=== PATIENT | female | born 1935 | race Two or more races ===

== ENCOUNTER 2018-12-21 01:41 | Inpatient (IN) | payer MEDICARE, OTHER ==
[~2018-12-21] VITALS: Ht 160 cm; Wt 53.3 kg
[~2018-12-21 01:41] MED LIST: ACET325T53 PO; AMLO10TA7 PO; ENOX40DI SQ; HYDR-4354 PO; LEVO250T2 PO
--- NOTE | 2018-12-21 01:58 | NUR ---
PT BIBDAUGHTER FROM HOME C/O ABD PAIN X 2 HOURS, DENIES N/V/D. PT HAS HX OF DEMENTIA. URUGUAYAN SPEAKING. NAD NOTED. RESP EVEN AND UNLABORED. PT ON MONITOR IN BED 11 WITH DAUGHTER AT BEDSIDE. WILL CONTINUE TO MONITOR.
--- NOTE | 2018-12-21 02:18 | NUR ---
BLOOD DRAWN AND GIVEN TO LAB
[2018-12-21] MEDS ORDERED: IV NS 0.9% 1,000 ML BAG IV ONE (02:30)
[2018-12-21] MEDS ORDERED: ONDANSETRON HCL/PF 4 MG/2 ML VIAL IVP ONE (02:30)
[2018-12-21] MEDS ORDERED: MORPHINE SULFATE INJ 2 MG/ML DISP.SYRIN IV ONE (02:30)
[2018-12-21 02:33] LABS: BASOPHILS # (AUTO) 0.1 /CMM (0.0-0.2); BASOPHILS % (AUTO) 0.8 % (0.0-2.0); EOSINOPHILS % (AUTO) 4.1 % (0.0-6.0); HEMATOCRIT 34 % (33-45); HEMOGLOBIN 11.4 g/dL (11.5-14.8); LYMPHOCYTES % (AUTO) 27.7 % (20.0-44.0); MEAN CORPUSCULAR HGB CONC 34 g/dl (31.0-36.0); MEAN CORPUSCULAR VOLUME 96 fL (82-100); MONOCYTES # (AUTO) 0.6 /CMM (0.1-1.30); MONOCYTES % (AUTO) 7.7 % (2.0-12.0); NEUTROPHILS # (AUTO) 4.4 /CMM (1.8-8.9); NEUTROPHILS % (AUTO) 59.7 % (43.0-81.0); PLATELET COUNT (AUTO) 210 /CMM (150-450); RED BLOOD CELL COUNT(AUTO) 3.53 MIL/uL (4.0-5.2); WHITE BLOOD COUNT (AUTO) 7.4 K/uL (4.3-11.0)
--- NOTE | 2018-12-21 02:34 | NUR ---
URINE COLLECTED AND SENT TO LAB
[2018-12-21 02:36] LABS: CALCIUM, SERUM 9.2 mg/dL (8.5-10.1); CARBON DIOXIDE 26 mmol/L (21-32); CHLORIDE 107 mmol/L (98-107); CREATININE 1.4 mg/dL (0.6-1.3); GLUCOSE 92 mg/dL (74-106); POTASSIUM 4.1 mmol/L (3.5-5.1); SODIUM SERUM 142 mmol/L (136-145); UREA NITROGEN, BLOOD 29 mg/dL (7-18)
--- NOTE | 2018-12-21 02:38 | NUR ---
PT TAKEN TO RADIOLOGY VIA JU
[2018-12-21 02:42] LABS: ALANINE AMINOTRANSFERASE 17 U/L (12-78); ALKALINE PHOSPHATASE 57 U/L (46-116); ASPARTATE AMINOTRANSFERASE 21 U/L (15-37); BILIRUBIN,DIRECT 0.1 mg/dL (0.0-0.2); BILIRUBIN,TOTAL 0.4 mg/dL (0.2-1.0); LIPASE 233 U/L (73-393); TOTAL PROTEIN, SERUM 8.1 g/dL (6.4-8.2)
--- NOTE | 2018-12-21 02:49 | NUR ---
PT RETURNED FROM CT. TOLERATED WELL.
[2018-12-21 03:11] LABS: APPEARANCE,URINE CLOUDY (CLEAR); COLOR,URINE YELLOW (YELLOW)
[2018-12-21 03:12] LABS: BILIRUBIN,URINE NEGATIVE (NEGATIVE); BLOOD, URINE 3+ Ery/uL (NEGATIVE); KETONES,URINE NEGATIVE (NEGATIVE); PH,URINE 7.5 (5.0-8.0); PROTEIN,URINE 2+ mg/dl (NEGATIVE); UGLUCOSE NEGATIVE (NEGATIVE)
[2018-12-21 03:13] LABS: LEUKOCYTE ESTERASE ,URINE 3+ (NEGATIVE); NITRITE, URINE NEGATIVE (NEGATIVE); UROBILINOGEN,URINE 0.2 EU/dL (0.2)
[2018-12-21 03:14] LABS: BACTERIA,URINE Few /HPF (None Seen); SQUAMOUS EPITHELIAL CELL,UR Few /HPF (None Seen); WBC,URINE TOO NUMEROUS TO COUN /HPF (0-3)
[2018-12-21] MEDS ORDERED: CEFTRIAXONE 1GM BAG (ER ONLY) 50 ML IV ONE (03:28)
[2018-12-21] MEDS ORDERED: CEFTRIAXONE 1 G in IV D5W 50 ML IV ONE (03:30)
[2018-12-21 04:10] VITALS: BP 166/73
--- NOTE | 2018-12-21 04:18 | NUR ---
MS/RN NOTES RECEIVED PT. FROM ER VIA JU. PT. IS AWAKE, ALERT AND ORIENTED X2. BREATHING EVEN AND UNLABORED ON ROOM AIR. NO SOB, RESPIRATORY DISTRESS OR COMPLAINTS OF PAIN NOTED AT THIS TIME. PT. WITH LEFT FOREARM 20 GAUGE IV SALINE LOCK PRESENT, PATENT AND INTACT. ORIENTED PT. TO ROOM. PT. IS AMBULATORY WITH WALKER AND STANDBY ASSIST. PER ER NURSE DAVID GERMAN IS AWARE OF PATIENT ADMISSION AND WILL BE PUTTING IN ORDERS. BED LOCKED AND IN LOWEST POSITION, SIDE RAILS UP X3, BED ALARM ON, CALL LIGHT WITHIN REACH, AWAITING ADMITTING ORDERS. WILL CONTINUE TO MONITOR.
--- NOTE | 2018-12-21 06:18 | NUR ---
MS/RN NOTES CALLED AND SPOKE WITH PT. DAUGHTER HORTENSIA GARZA TO CLARIFY IF PATIENT CURRENTLY TAKES ANY HOME MEDICATIONS. PER DAUGHTER PT. DOES NOT TAKE ANY PRESCRIBED MEDICATIONS AT THIS TIME. "PT. TAKES A SUPPLEMENT FOR RELAXATION AND THATS IT". PT. DAUGHTER ALSO STATED PT. HAS A CAREGIVER THAT WILL BE COMING THIS MORNING. WILL CONTINUE TO MONITOR.
--- NOTE | 2018-12-21 06:21 | NUR ---
MS/RN NOTES CALLED AND SPOKE WITH DR. GERMAN TO RECEIVE ADMITTING ORDERS. PER DR. GERMAN "I WILL BE ARRIVING AT THE HOSPITAL SOON AND I WILL PUT THEM IN, FOR NOW JUST PUT IN A REGULAR DIET ORDER". WILL CARRY OUT ORDERS. WILL CONTINUE TO MONITOR.
--- NOTE | 2018-12-21 06:50 | NUR ---
MS/RN NOTES PT. IS LYING IN BED RESTING. BREATHING EVEN AND UNLABORED ON ROOM AIR. NO SOB, RESPIRATORY DISTRESS OR COMPLAINTS OF PAIN NOTED AT THIS TIME. PT. WITH LEFT FOREARM 20 GAUGE IV SALINE LOCK PRESENT, PATENT AND INTACT. ALL PT. NEEDS MET. BED LOCKED AND IN LOWEST POSITION, SIDE RAILS UP X3, BED ALARM ON, CALL LIGHT WITHIN REACH, WILL ENDORSE TO DAYSHIFT NURSE FOR CONTINUITY OF CARE.
[2018-12-21 08:00] VITALS: BP 162/78
--- NOTE | 2018-12-21 08:00 | NUR ---
RN NOTES RECEIVED PATIENT IN THE BED , CONFUSED TURKISH SPEAKER. NO ACUTE RESPIRATORY DISTRESS, PATIENT SKIN INTACT, V/S TAKEN BP 162/68, P-66, ADMINISTERED SCHEDULED MEDICATION. PATIENT INCONTINENT, USING DIAPER. CALL LIGHT WITHIN TO REACH, SAFETY PRECAUTION MAINTAINED ALL THE TIME.
--- NOTE | 2018-12-21 08:06 | NUR ---
NURSE SCHOOL/MED RECON INFORMATION OBTAINED FROM THE DAUGHTER "SHE DOESN'T TAKE ANY MEDICATION AT ALL". PRIMARY NURSE AWARE.
[2018-12-21] MEDS ORDERED: ZOLPIDEM TARTRATE 5 MG TABLET PO PRN (09:00)
[2018-12-21] MEDS ORDERED: ACETAMINOPHEN 325 MG TABLET PO PRN (09:00)
[2018-12-21] MEDS ORDERED: ONDANSETRON HCL/PF 4 MG/2 ML VIAL IVP PRN (09:00)
[2018-12-21] MEDS ORDERED: Z GUARD REMEDY 2 OZ OINT TP PRN (09:00)
[2018-12-21] MEDS ORDERED: MAGNESIUM HYDROXIDE 30 ML UDC PO PRN (09:00)
[2018-12-21] MEDS: AMLODIPINE BESYLATE 10 MG TABLET PO SCH (09:46)
[2018-12-21] MEDS: ENOXAPARIN SODIUM 30 MG/0.3 ML DISP.SYRIN SQ SCH (09:50)
--- NOTE | 2018-12-21 12:00 | NUR ---
RN NOTES PATIENT IN THE BED, SEEN BY LALIT Conley SUPERINTENDENT COMMISSARY NEXT TO THE BED FOR SAFETY. PATIENT TOLERATED FOOD WELL. CONTINUED MONITORING.
[2018-12-21 16:00] VITALS: BP 121/69
--- NOTE | 2018-12-21 16:00 | NUR ---
RN NOTES PATIENTS DAUGHTER NEXT TO THE BED BROUGHT HOME MEDICATION FOR NIGHTTIME. CALLED Dr RAINEY FOR VERIFICATION OF HOME MEDICATION. SANDED MEDICATION TO THE PHARMACY. CONTINUED MONITORING.
[2018-12-21] MEDS ORDERED: [UNRECOGNIZED DRUG - OTHER] PO (17:43)
[2018-12-21] MEDS ORDERED: [UNRECOGNIZED DRUG - OTHER] PO (17:43)
[2018-12-21] MEDS ORDERED: [UNRECOGNIZED DRUG - OTHER] PO (17:43)
--- NOTE | 2018-12-21 18:30 | NUR ---
RN NOTES PATIENT STABLE TOLERATED DINNER WELL, CARE FIVER NEXT TO THE BED. PATIENT REFUSED PAIN, V/S STABLE. ENDORSED ONCOMING NURSE FOLLOW PLAN OF CARE.
--- NOTE | 2018-12-21 19:10 | NUR ---
MS/RN NOTES RECEIVED PT. LYING IN BED. PT. IS AWAKE, ALERT AND ORIENTED X2. BREATHING EVEN AND UNLABORED ON ROOM AIR. NO SOB, RESPIRATORY DISTRESS OR COMPLAINTS OF PAIN NOTED AT THIS TIME. PT. WITH LEFT FOREARM 20 GAUGE IV SALINE LOCK PRESENT, PATENT AND INTACT. BED LOCKED AND IN LOWEST POSITION, SIDE RAILS UP X3, BED ALARM ON, CALL LIGHT WITHIN REACH, WILL CONTINUE TO MONITOR.
[2018-12-21 20:15] VITALS: BP 161/81
[2018-12-21] MEDS: [UNRECOGNIZED DRUG - OTHER] PO SCH (21:04)
[2018-12-21] MEDS: CEFTRIAXONE 1 G in IV D5W 50 ML IV SCH (21:04)
[2018-12-21] MEDS: [UNRECOGNIZED DRUG - OTHER] PO SCH (21:05)
[2018-12-21] MEDS: PROBIOTIC PO SCH (21:06)
[2018-12-21] MEDS: [UNRECOGNIZED DRUG - OTHER] PO SCH (21:06)
--- NOTE | 2018-12-22 06:31 | NUR ---
MS/RN NOTES RECEIVED PT. LYING RESTING. BREATHING EVEN AND UNLABORED ON ROOM AIR. NO SOB, RESPIRATORY DISTRESS OR COMPLAINTS OF PAIN NOTED AT THIS TIME. PT. WITH LEFT FOREARM 20 GAUGE IV SALINE LOCK PRESENT, PATENT AND INTACT. ALL PT. NEEDS MET. BED LOCKED AND IN LOWEST POSITION, SIDE RAILS UP X3, BED ALARM ON, CALL LIGHT WITHIN REACH, WILL ENDORSE TO DAYSHIFT NURSE FOR CONTINUITY OF CARE.
[2018-12-22 07:38] LABS: BASOPHILS % (AUTO) 0.4 % (0.0-2.0); EOSINOPHILS % (AUTO) 3.7 % (0.0-6.0); HEMATOCRIT 33 % (33-45); HEMOGLOBIN 11.2 g/dL (11.5-14.8); LYMPHOCYTES # (AUTO) 2.2 /CMM (0.8-4.8); LYMPHOCYTES % (AUTO) 38.9 % (20.0-44.0); MEAN CORPUSCULAR HGB CONC 34 g/dl (31.0-36.0); MEAN CORPUSCULAR VOLUME 95 fL (82-100); MONOCYTES # (AUTO) 0.5 /CMM (0.1-1.30); MONOCYTES % (AUTO) 7.9 % (2.0-12.0); NEUTROPHILS # (AUTO) 2.8 /CMM (1.8-8.9); NEUTROPHILS % (AUTO) 49.1 % (43.0-81.0); PLATELET COUNT (AUTO) 218 /CMM (150-450); WHITE BLOOD COUNT (AUTO) 5.7 K/uL (4.3-11.0)
[2018-12-22 08:00] VITALS: BP 166/80
--- NOTE | 2018-12-22 08:00 | NUR ---
RN NOTES SEEN PATIENT IN THE BED A/O X1/2, CONFUSED, BUT REDIRECTABLE. PATIENT HAS NO ACUTE DISTRESS, V/S STABLE, ADMINISTERED SCHEDULED MEDICATION. PATIENT AMBULATORY WITH ASSIST USING WALKER, INCONTINENT APPLIED Z-GUARD. IV ACCESS ON LEFT FA INTACT. [PATIENT REFUSED PAIN AT THIS TIME. PRIVET WEIGHER AND GRADER NEXT TO THE BED. CONTINUED MONITORING.
[2018-12-22 08:06] LABS: CHOLESTEROL 197 mg/dL (<200); HDL CHOLESTEROL 35 mg/dL (40-60); LDL 146 mg/dL (0-99); TRIGLYCERIDES 105 mg/dL (30-150)
[2018-12-22 08:11] LABS: CALCIUM, SERUM 8.8 mg/dL (8.5-10.1); CARBON DIOXIDE 22 mmol/L (21-32); CHLORIDE 108 mmol/L (98-107); CREATININE 1.1 mg/dL (0.6-1.3); GLUCOSE 75 mg/dL (74-106); PHOSPHORUS 3.6 mg/dL (2.5-4.9); POTASSIUM 3.7 mmol/L (3.5-5.1); SODIUM SERUM 142 mmol/L (136-145); UREA NITROGEN, BLOOD 20 mg/dL (7-18)
[2018-12-22] MEDS: AMLODIPINE BESYLATE 10 MG TABLET PO SCH (08:59)
[2018-12-22] MEDS: ENOXAPARIN SODIUM 30 MG/0.3 ML DISP.SYRIN SQ SCH (09:02)
[2018-12-22] MEDS: IV NS 0.9% 1,000 ML IV PRN (12:25)
--- NOTE | 2018-12-22 12:58 | NUR ---
RN NOTES ADMINISTERED MILK OF MAGNESIA 30 ML PO PRN FOR CONSTIPATION, ALSO STARTED IV INFUSION NS AT 75 ML/HR, ON LEFT FA INTACT, PRIVET EXHIBITIONS AND COLLECTIONS MANAGER NEXT TO THE BED. SAFETY PRECAUTION MAINTAINED ALL THE TIME.
[2018-12-22 16:00] VITALS: BP 130/67
--- NOTE | 2018-12-22 18:30 | NUR ---
RN NOTES PATIENT STABLE, INFUSING NS AT 75 ML/HR, PATIENT REFUSED PAIN, A/O X1/2, CONFUSED, REDIRECTABLE, MICROBIOLOGY LAB ANALYST NEXT TO THE BED, SAFETY PRECAUTION MAINTAINED ALL THE TIME. ENDORSED ONCOMING NURSE FOLLOW PLAN OF CARE.
--- NOTE | 2018-12-22 19:20 | NUR ---
MS/RN NOTES RECEIVED PT. LYING IN BED. PT. IS RESTING, EASILY AROUSABLE TO NAME. PT. IS ALERT AND ORIENTED X2. BREATHING EVEN AND UNLABORED ON ROOM AIR. NO SOB, RESPIRATORY DISTRESS OR COMPLAINTS OF PAIN NOTED AT THIS TIME. PT. WITH LEFT FOREARM 20 GAUGE PERIPHERAL IV PRESENT, PATENT AND INTACT ADMINISTERING TO PT. NS @ 75 ML/HR. PT. WITH CAREGIVER PRESENT AT BEDSIDE. BED LOCKED AND IN LOWEST POSITION, SIDE RAILS UP X3, BED ALARM ON, CALL LIGHT WITHIN REACH, WILL CONTINUE TO MONITOR.
[2018-12-22 20:00] VITALS: BP 136/65
[2018-12-22] MEDS: CEFTRIAXONE 1 G in IV D5W 50 ML IV SCH (21:51)
[2018-12-22] MEDS: [UNRECOGNIZED DRUG - OTHER] PO SCH (21:51)
[2018-12-22] MEDS: PROBIOTIC PO SCH (21:51)
[2018-12-22] MEDS: [UNRECOGNIZED DRUG - OTHER] PO SCH (21:51)
[2018-12-22] MEDS: [UNRECOGNIZED DRUG - OTHER] PO SCH (21:52)
--- NOTE | 2018-12-23 06:50 | NUR ---
MS/RN NOTES PT. IS LYING IN BED RESTING, BREATHING EVEN AND UNLABORED ON ROOM AIR. NO SOB, RESPIRATORY DISTRESS OR COMPLAINTS OF PAIN NOTED AT THIS TIME. PT. WITH LEFT FOREARM 20 GAUGE PERIPHERAL IV PRESENT, PATENT AND INTACT ADMINISTERING TO PT. NS @ 75 ML/HR. ALL PT. NEEDS MET. BED LOCKED AND IN LOWEST POSITION, SIDE RAILS UP X3, BED ALARM ON, CALL LIGHT WITHIN REACH, WILL ENDORSE TO DAYSHIFT NURSE FOR CONTINUITY OF CARE.
--- NOTE | 2018-12-23 07:20 | NUR ---
MS RN NOTES PATIENT LYING IN BED, ALERT ORIENTED X 2. NO ACUTE DISTRESS NOTED, BREATHING UNLABORED. IV ACCESS PATENT AND INTACT, NO REDNESS OR SWELLING NOTED. SAFETY MEASURES IN PLACE, CALL LIGHT WITHIN REACH, WILL CONTINUE TO MONITOR ACCORDINGLY.
[2018-12-23 08:00] VITALS: BP 150/77
[2018-12-23] MEDS: AMLODIPINE BESYLATE 10 MG TABLET PO SCH (09:08)
[2018-12-23] MEDS: IV NS 0.9% 1,000 ML IV PRN (09:10)
[2018-12-23] MEDS: ENOXAPARIN SODIUM 30 MG/0.3 ML DISP.SYRIN SQ SCH (09:11)
[2018-12-23] MEDS ORDERED: CEPH-569 PO (12:17)
[2018-12-23 16:00] VITALS: BP 115/65
--- NOTE | 2018-12-23 18:15 | NUR ---
MS TELEVISION CABINET FINISHER NOTES PATIENT DISCHARGE HOME WITH STABLE VITAL SIGNS. NO ACUTE DISTRESS NOTED, BREATHING UNLABORED. DISCHARGE INSTRUCTIONS GIVEN TO THE DAUGHTER, INCLUDING NEW PRESCRIPTION AND FOLLOW UP WITH DR SARGENT, VERBALIZED UNDERSTANDING. IV ACCESS REMOVED, NO REDNESS, NO BLEEDING , NO SWELLING NOTED. ASSISTED TO THE LOBBY, PICKED UP VIA PRIVATE CAR WITH DAUGHTER IN STABLE CONDITION.
== END 2018-12-23 18:17 | disposition home or self-care (01) | DRG 682 ==
LOC: ER 01:44 → MED 03:55
PROVIDERS: ADMIT Internal Medicine; ATTEND Internal Medicine
DX: N17.0 Acute kidney failure with tubular necrosis (principal); G92 Toxic encephalopathy; N39.0 Urinary tract infection, site not specified; F03.90 Unspecified dementia, unspecified severity, without behavioral disturbance, psychotic disturbance, mood disturbance, and anxiety
CPT/HCPCS: 36415; 80048-TC; 80061-TC; 80076-TC; 81000-TC; 83690-TC; 83735-TC; 84100-TC; 84484-TC; 85025-TC; 85730-TC; 87081-TC; 87086-TC; 87186-TC; 97116-TC; 97530-TC; G0378; J0696; J1650; J7030; J7050; J7060

== ENCOUNTER 2019-01-31 16:52 | Inpatient (IN) | payer MEDICARE, OTHER ==
[~2019-01-31] VITALS: Ht 157.5 cm; Wt 54.0 kg
[~2019-01-31 16:52] MED LIST changes: -ACET325T53 PO; -AMLO10TA7 PO; +CEPH-569 PO; -ENOX40DI SQ; -HYDR-4354 PO; -LEVO250T2 PO; +[UNRECOGNIZED DRUG - OTHER] PO; +[UNRECOGNIZED DRUG - OTHER] PO; +[UNRECOGNIZED DRUG - OTHER] PO
--- NOTE | 2019-01-31 17:52 | NUR ---
BIB FAMILY FOR DIZZINESS, AND HEADACHE. SEEN AT [facility] YESTERDAY S/P GLF ALSO DIAGNOSED W/ UTI. PT AA0X2, VSS. DENIES CP, SOB, N/V, NUMBNESS/TINGLING SENSATION, WEAKNESS @ THIS TIME. PLACED ON REFRACTORY TILE HELPER. SR. SEEN & EVAL'D BY DR. MOJICA. FAMILY @ BS & WILL CONT TO MONITOR.
[2019-01-31 18:05] LABS: BASOPHILS % (AUTO) 0.6 % (0.0-2.0); EOSINOPHILS % (AUTO) 3.1 % (0.0-6.0); HEMATOCRIT 32 % (33-45); HEMOGLOBIN 10.8 g/dL (11.5-14.8); LYMPHOCYTES % (AUTO) 32.6 % (20.0-44.0); MEAN CORPUSCULAR HGB CONC 34 g/dl (31.0-36.0); MEAN CORPUSCULAR VOLUME 95 fL (82-100); MONOCYTES # (AUTO) 0.4 /CMM (0.1-1.30); MONOCYTES % (AUTO) 6.2 % (2.0-12.0); NEUTROPHILS # (AUTO) 3.5 /CMM (1.8-8.9); NEUTROPHILS % (AUTO) 57.5 % (43.0-81.0); PLATELET COUNT (AUTO) 222 /CMM (150-450); RED BLOOD CELL COUNT(AUTO) 3.34 MIL/uL (4.0-5.2); WHITE BLOOD COUNT (AUTO) 6.1 K/uL (4.3-11.0)
[2019-01-31 18:21] LABS: ALANINE AMINOTRANSFERASE 14 U/L (12-78); ALBUMIN 3.7 g/dL (3.4-5.0); ALKALINE PHOSPHATASE 59 U/L (46-116); ASPARTATE AMINOTRANSFERASE 17 U/L (15-37); BILIRUBIN,DIRECT 0.1 mg/dL (0.0-0.2); BILIRUBIN,TOTAL 0.3 mg/dL (0.2-1.0); CALCIUM, SERUM 8.9 mg/dL (8.5-10.1); CARBON DIOXIDE 26 mmol/L (21-32); CHLORIDE 107 mmol/L (98-107); CREATININE 1.3 mg/dL (0.6-1.3); GLUCOSE 103 mg/dL (74-106); POTASSIUM 4.5 mmol/L (3.5-5.1); SODIUM SERUM 140 mmol/L (136-145); TOTAL PROTEIN, SERUM 8.2 g/dL (6.4-8.2); UREA NITROGEN, BLOOD 21 mg/dL (7-18)
--- NOTE | 2019-01-31 18:31 | NUR ---
CALLED VIP NEPHRO ANAND GERMAN
[2019-01-31] MEDS ORDERED: CEFTRIAXONE 1 G in IV D5W 50 ML IV ONE (19:00)
[2019-01-31] MEDS ORDERED: IV NS 0.9% 1,000 ML BAG IV ONE (19:00)
--- NOTE | 2019-01-31 19:00 | NUR ---
MEDICATED PER ERMD ORDER, PT JEFFREY WELL. WILL CONT TO MONITOR.
[2019-01-31] MEDS ORDERED: ASPI-605 PO (19:11)
[2019-01-31] MEDS ORDERED: CEFD300C3 PO (19:11)
[2019-01-31] MEDS ORDERED: CLONIDINE HCL 0.1 MG TABLET ONE (20:43)
[2019-01-31] MEDS: CLONIDINE HCL 0.1 MG TABLET PO PRN (20:57)
--- NOTE | 2019-01-31 21:02 | NUR ---
REPORT GIVEN TO RAFAEL GAGE FOR NELLY
[2019-01-31 21:15] VITALS: BP 178/84
[2019-01-31] MEDS: IV D5/ 0.9% NACL 1,000 ML IV SCH (21:51)
--- NOTE | 2019-01-31 22:00 | NUR ---
SALES MANAGEMENT INTERNYARDING SUPERVISOR NOTES RECEIVED PATIENT FROM ER VIA GURNEY ACCOMPANIED BY CAREGIVER AND ER STAFF, ALERT AND ORIENTED X 1-2, TAMAZIGHT SPEAKING. VERBALLY RESPONSIVE AND ABLE TO FOLLOW DIRECTIONS. BREATHING REGULAR AND UNLABORED ON ROOM AIR. RIGHT FOREARM IV LINE INTACT AND PATENT FLUSHING WELL WITH NO BLEEDING AND S/S OF INFECTION/INFILTRATION NOTED. STARTED ON D5 NS AT 100CC/HR, INFUSING WELL. BODY ASSESSMENT DONE, SEEN WITH SACRAL REDNESS AND LEFT HIP SURGICAL SCAR, PHOTO TAKEN ATTACHED TO CHART. ATTACHED ON HARNESS WORKER WITH SINUS BRADYCARDIA AT 55bpm. NO COMPLAINTS OF PAIN/DISCOMFORT REPORTED OF THE TIME. BED LOW AND LOCKED ON SEMI FOWLERS POSITION. WILL CONTINUE TO MONITOR.
[2019-02-01] VITALS: BP 155/71
[2019-02-01 04:00] VITALS: BP 158/68
--- NOTE | 2019-02-01 05:42 | NUR ---
SILVER BUFFER NOTES PATIENT REFUSED BLOOD DRAW FOR AM LABS, RISK AND BENEFITS EXPLAINED 3X. CAN'T UNDERSTAND WHAT THE PATIENT WAS SAYING BECAUSE OF HER ITALIAN LANGUAGE. WILL ENDORSE TO MORNING SHIFT TO CALL LAB FOR BLOOD DRAW WHEN DAUGHTER COMES TO INTERPRET.
--- NOTE | 2019-02-01 06:36 | NUR ---
FILTER PRESS PUMPER CLOSING NOTES PATIENT IN BED ALERT AND ORIENTED X 1-2, BRAZILIAN SPEAKING. VERBALLY RESPONSIVE AND ABLE TO FOLLOW DIRECTIONS. BREATHING REGULAR AND UNLABORED ON ROOM AIR. RIGHT FOREARM IV LINE INTACT AND PATENT FLUSHING WELL WITH NO BLEEDING AND S/S OF INFECTION/INFILTRATION NOTED. MAINTAINED ON CARDIAC MONITORING WITH NORMAL SINUS RHYTHM AT 64bpm. ON IV ATB WITH NO ADVERSE REACTIONS OBSERVED. NO COMPLAINTS OF PAIN/DISCOMFORT REPORTED WITH IN THE SHIFT. BED LOW AND LOCKED ON SEMI FOWLERS POSITION. REFUSED AM LABS BLOOD DRAW. RISK AND BENEFITS EXPLAINED. WILL ENDORSE TO MORNING SHIFT FOR NELLY.
[2019-02-01] MEDS: IV D5/ 0.9% NACL 1,000 ML IV SCH ×2 (06:45→16:30)
--- NOTE | 2019-02-01 07:11 | NUR ---
PROCESS CHEESE COOKER NOTES WHILE DOING CHANGE OF SHIFT ROUNDS, FOUND PATIENT WITH PULLED-OUT IV LINE. STILL NOTED WITH EPISODE OF CONFUSION. ENDORSED TO MORNING SHIFT FOR NELLY.
--- NOTE | 2019-02-01 07:35 | NUR ---
MS RN OPENING NOTE PATIENT IN BED RESTING COMFORTABLY. PATIENT IN NO ACUTE DISTRESS. NO SOB NOTED. PATIENT BREATHING IS EVEN AND UNLABORED. PATIENT REMOVED IV ACCESS. PATIENT BED ALARM IS ON. PATIENT BED IS LOCKED AND IN LOWEST POSITION. CALL LIGHT WITHIN REACH. WILL CONTINUE TO MONITOR.
[2019-02-01 08:00] VITALS: BP 193/78
[2019-02-01] MEDS: ASPIRIN EC 81 MG TABLET.DR PO SCH (09:28)
[2019-02-01 10:45] LABS: BASOPHILS % (AUTO) 0.4 % (0.0-2.0); EOSINOPHILS % (AUTO) 1.8 % (0.0-6.0); HEMATOCRIT 30 % (33-45); HEMOGLOBIN 10.3 g/dL (11.5-14.8); LYMPHOCYTES # (AUTO) 1.2 /CMM (0.8-4.8); LYMPHOCYTES % (AUTO) 17.6 % (20.0-44.0); MEAN CORPUSCULAR HGB CONC 35 g/dl (31.0-36.0); MEAN CORPUSCULAR VOLUME 95 fL (82-100); MONOCYTES # (AUTO) 0.3 /CMM (0.1-1.30); MONOCYTES % (AUTO) 4.8 % (2.0-12.0); NEUTROPHILS # (AUTO) 5.3 /CMM (1.8-8.9); NEUTROPHILS % (AUTO) 75.4 % (43.0-81.0); PLATELET COUNT (AUTO) 210 /CMM (150-450); RED BLOOD CELL COUNT(AUTO) 3.15 MIL/uL (4.0-5.2)
[2019-02-01 11:03] LABS: CALCIUM, SERUM 8.2 mg/dL (8.5-10.1); CREATININE 1.1 mg/dL (0.6-1.3); POTASSIUM 3.8 mmol/L (3.5-5.1)
[2019-02-01] MEDS: CLONIDINE HCL 0.1 MG TABLET PO PRN (12:00)
--- NOTE | 2019-02-01 14:00 | NUR ---
MS RN NOTE PATIENT BP RUNNING SYSTOLIC IN THE 170'S TO 180'S. EVEN AFTER 0.1 CLONIDINE GIVEN PRN AT 1200. CONTACTED DR[address] GERMAN AND IS MADE AWARE.
--- NOTE | 2019-02-01 15:10 | NUR ---
MS RN NOTE PATIENT SEEN AND EVALUATED BY DR. GERMAN. WILL FOLLOW AND CARRY OUT NEW ORDERS.
[2019-02-01 16:00] VITALS: BP 196/83
[2019-02-01] MEDS: CLONIDINE HCL 0.1 MG TABLET PO SCH (16:34)
[2019-02-01] MEDS: CEFTRIAXONE 1 G in IV D5W 50 ML IV SCH (17:20)
[2019-02-01 17:30] VITALS: BP 162/74
--- NOTE | 2019-02-01 18:46 | NUR ---
MS RN CLOSING NOTE PATIENT IS RESTING COMFORTABLY IN BED. PATIENT IN NO ACUTE DISTRESS. NO SOB NOTED. PATIENT BREATHING IS EVEN AND UNLABORED. CAREGIVER AT THE BEDSIDE. PATIENT VERBALIZES NEEDS, NEEDS AND CONCERNS ADDRESSED. PATIENT WAS SEEN BY DR. GERMAN FOR THE HIGH BLOOD PRESSURE. PER MD BP MEDICATIONS ORDERED TO MANAGE BP. PATIENT IS ASYMPTOMATIC. PATIENT STATES SHE IS NOT DIZZY AND HAS BEEN KEPT CLEAN, DRY, AND COMFORTABLE THROUGHOUT SHIFT. HOB IS ELEVATED. SAFETY PRECAUTIONS IN PLACE. FAMILY CONTACT FOR DAUGHTERS NUMBER IS [phone]. PATIENT BED IS LOCKED AND IN LOWEST POSITION. CALL LIGHT WITHIN REACH. WILL ENDORSE CARE TO PM SHIFT FOR NELLY.
--- NOTE | 2019-02-01 19:10 | NUR ---
MS RN OPENING NOTES Received patient asleep on bed, easily awaken, on RA, no SOB/respiratory distress noted. A/O x2, with confusion noted. Kept on bed low and locked, siderails x3 up with bed alarm on. With peripheral IV line LFA G#20 with sleeve on. With D5 NS infusing well @ 100ml/hr as ordered. Kept on bed clean, dry and comfortable. Call light within easy reach. Will continue to monitor accordingly.
[2019-02-01 20:23] VITALS: BP 163/82
[2019-02-02] MEDS: IV D5/ 0.9% NACL 1,000 ML IV SCH ×3 (03:48→23:18)
--- NOTE | 2019-02-02 06:29 | NUR ---
MS RN CLOSING NOTES Patient asleep, easily awaken, A/O x2. No new unusualities noted. Afebrile the whole shift. On RA, no SOB/respiratory distress noted at this time. All nursing needs attended. Due meds given as ordered, no ASE noted. Kept on bed clean, dry and comfortable. Call light within easy reach. Endorsed to the next shift.
--- NOTE | 2019-02-02 08:00 | NUR ---
RN OPENING NOTES PT AWAKE AND RESTING IN BED. CAREGIVER AT BEDSIDE PATIENT PRIMARILY TURKMEN SPEAKER. PT HAS LEFT FA #20 IV RUNNING D5NS @100ML/HR. SAFETY PRECAUTIONS IN PLACE, BED IN LOWEST LOCKED POSITION, X2 SIDE RAILS UP AND CALL LIGHT WITHIN REACH. WILL CONTINUE TO MONITOR.
[2019-02-02] MEDS: ASPIRIN EC 81 MG TABLET.DR PO SCH (08:43)
[2019-02-02] MEDS: CLONIDINE HCL 0.1 MG TABLET PO SCH ×3 (08:44→16:14)
[2019-02-02] MEDS ORDERED: VALSARTAN 80 MG TABLET PO SCH (09:00)
[2019-02-02] MEDS: AMLODIPINE BESYLATE 5 MG TABLET PO SCH (10:25)
[2019-02-02] MEDS: VALSARTAN 80 MG TABLET PO SCH (10:26)
[2019-02-02] MEDS ORDERED: LACT1CAP72 PO (12:35)
[2019-02-02 16:00] VITALS: BP 161/73
[2019-02-02] MEDS: CEFTRIAXONE 1 G in IV D5W 50 ML IV SCH (18:28)
--- NOTE | 2019-02-02 19:11 | NUR ---
RN CLOSING NOTES PT AWAKE AND RESTING IN BED. CAREGIVER AT BEDSIDE. PATIENT PRIMARILY PRYDEINIG SPEAKER. PT HAS LEFT FA #20 IV RUNNING D5NS @100ML/HR. SAFETY PRECAUTIONS IN PLACE, BED IN LOWEST LOCKED POSITION, X2 SIDE RAILS UP AND CALL LIGHT WITHIN REACH. WILL ENDORSE TO YOUTH CORRECTIONS OFFICER NURSE FOR CONTINUITY OF CARE.
--- NOTE | 2019-02-02 19:15 | NUR ---
MS RN OPENING NOTES Received patient A/O x2, awake on semi-Cao's position on bed. On RA, no SOB/respiratory distress noted. No complaints of discomfort at this time. With patent peripheral IV line LFA G#20 with D5NS infusing well @ 100ml/hr as ordered. On diaper, noted incontinent. With private caregiver at bedside. Kept on bed clean, dry and comfortable. On fall precautions. Call light within easy reach. Will continue to monitor accordingly.
[2019-02-02 20:00] VITALS: BP 134/66
--- NOTE | 2019-02-03 06:37 | NUR ---
MS RN CLOSING NOTES Patient asleep, easily awaken. No new unsualities noted. Kept on bed clean, dry and comfortable. Call light within easy reach. All nursing needs attended. On fall precautions. Endorsed to the next shift.
[2019-02-03 08:00] VITALS: BP 187/85
--- NOTE | 2019-02-03 08:00 | NUR ---
RN NOTES RECEIVED PATIENT IN THE BED A/O X1, CONFUSED, NO ACUTE RESPIRATORY DISTRESS, BUT COMPLAINING OF DIZZINESS, V/S TAKEN BP 187/ 85, P-61, ADMINISTERED SCHEDULED BLOOD PRESSURE MEDICATION. KEEP PATIENT IN THE BED, HOB ELEVATED, CALL LIGHT WITHIN TO REACH, CONTINUED MONITORING.
[2019-02-03] MEDS: CLONIDINE HCL 0.1 MG TABLET PO SCH ×3 (08:02→18:27)
[2019-02-03] MEDS: ASPIRIN EC 81 MG TABLET.DR PO SCH (08:03)
[2019-02-03] MEDS: AMLODIPINE BESYLATE 5 MG TABLET PO SCH (08:03)
[2019-02-03] MEDS: VALSARTAN 80 MG TABLET PO SCH (08:03)
--- NOTE | 2019-02-03 10:00 | NUR ---
RN NOTES PER PT PATIENT HAS DIZZINESS UNABLE TO WALK SINCE YESTERDAY. [facility] NOTIFIED.
[2019-02-03] MEDS ORDERED: AMLO5TAB9 PO (10:12)
[2019-02-03] MEDS ORDERED: VALS80TA2 PO (10:12)
--- NOTE | 2019-02-03 11:00 | NUR ---
RN NOTES RECHECKED BP 134/ 67, P-63, PATIENT STABLE LYING IN THE BED. TOLERATED FOOD WELL.
--- NOTE | 2019-02-03 12:30 | NUR ---
RN NOTES PATIENT FEEL DIZZINESS UNSTABLE TO AMBULATE, NOTIFIED PER Dr GERMAN AND GET ORDER CT HEAD. HOLD DISCHARGE AT THIS TIME, ALSO GET NEURE CONSULTATION.
--- NOTE | 2019-02-03 13:00 | NUR ---
RN NOTES GET CALL FROM NEUROLOGIST GLO WOODS NP AND GET TO ORDER CTA BRAIN, AND NECK STAT. ORDER TAKEN AND CARRIED OUT.
--- NOTE | 2019-02-03 13:48 | NUR ---
on hold per nurse , will check wiyh family and ordering md
--- NOTE | 2019-02-03 14:03 | NUR ---
RN NOTES CALLED PATIENT DAUGHTER NAME KIMBERLY BAZAN FOR CONSENT CTA BRAIN AND NECK. PATIENTS DAUGHTER AGREED AND CONSENT CO-SIGNED WITH ANOTHER RN NAME ROMI LEWIS.
--- NOTE | 2019-02-03 14:08 | NUR ---
RN NOTES HELD 1300 MEDICATION CATAPRES 0.1 MG PO BECAUSE OF LOW BP 122/64,P-P-64. ALSO PATIENT GETTING ANGIO AT THIS TIME. CALL LIGHT WITHIN TO REACH. BARRONET BODY SHOP MANAGER NEXT TO THE BED. CONTINUED MONITORING.
[2019-02-03] MEDS ORDERED: IOHEXOL-350 100 ML VIAL IV ONE (14:23)
[2019-02-03] MEDS ORDERED: CT SWABBABLE VALVE TRANS SET 1 EA INFUS.SET MC ONE (14:24)
[2019-02-03] MEDS ORDERED: IV NS 0.9% 250 ML IV ONE (14:24)
[2019-02-03 16:00] VITALS: BP 159/74
[2019-02-03 16:27] LABS: CHOLESTEROL 152 mg/dL (<200); HDL CHOLESTEROL 28 mg/dL (40-60); LDL 105 mg/dL (0-99); TRIGLYCERIDES 212 mg/dL (30-150)
[2019-02-03] MEDS: IV D5/ 0.9% NACL 1,000 ML IV SCH ×2 (18:23→18:36)
[2019-02-03] MEDS: CEFTRIAXONE 1 G in IV D5W 50 ML IV SCH (18:24)
--- NOTE | 2019-02-03 18:30 | NUR ---
RN NOTES PATIENT STABLE, INFUSING D5NS AT 100 ML/HR IN LEFT FA, ADMINISTERED SCHEDULED MEDICATION. PATIENT REFUSED PAIN AT THIS TIME. CALL LIGHT WITHIN TO REACH. PRIVET SALES ENABLEMENT MANAGER NEXT TO THE BED FOR SAFETY. ENDORSED ONCOMING NURSE FOLLOW PLAN OF CARE.
[2019-02-03] MEDS ORDERED: PNEUMOCOCCAL 23-VAL P-SAC VAC 0.5 ML VIAL SQ ONE (19:00)
[2019-02-03] MEDS ORDERED: INFLUENZA VACCINE 2019-20 0.5 ML DISP.SYRIN IM ONE (19:00)
--- NOTE | 2019-02-03 19:15 | NUR ---
MS RN OPENING NOTES PATIENT RECEIVED IN BED WITH HEAD OF BED ELEVATED, ALERT, ORIENTED X 2. PRIVATE CAREGIVER AT BEDSIDE. BREATHING EVEN AND UNLABORED. NOT IN ANY DISTRESS, ON ROOM AIR. NO COMPLAINTS AT THIS TIME. PERIPHERAL IV INFUSING AT 100ML/HR. SAFETY MEASURES IN PLACE; CALL LIGHT WITHIN REACH, BED IN LOW, LOCKED POSITION. WILL CONTINUE TO MONITOR ACCORDINGLY
[2019-02-03 20:00] VITALS: BP 130/63
--- NOTE | 2019-02-03 20:30 | NUR ---
RN NOTES FLU VACC 0.5ML IM GIVEN ON R) ARM WITH LOT # [id number] EXPIRATION DATE: 10/27/2019. PNA VACCINE 0.5ML SQ GIVEN ON L) DELTOID WITH LOT # [id number], EXPIRATION DATE: 12/04/2019. CONSENT IN CHART. VACCINATION FORM FAXED TO PHARMACY
[2019-02-03 20:42] VITALS: BP 130/63
[2019-02-03] MEDS ORDERED: ATORVASTATIN 40 MG TABLET PO SCH (22:00)
[2019-02-04] MEDS: IV D5/ 0.9% NACL 1,000 ML IV SCH (05:01)
--- NOTE | 2019-02-04 06:48 | NUR ---
MS RN CLOSING NOTES PATIENT IN BED WITH HEAD OF BED ELEVATED, ALERT, ORIENTED X 2. BREATHING EVEN AND UNLABORED. NOT IN ANY DISTRESS, ON ROOM AIR. NO COMPLAINTS AT THIS TIME. PERIPHERAL IV INFUSING AT 100ML/HR. NO ACUTE CHANGES OVERNIGHT. ALL NEEDS ATTENDED. SAFETY MEASURES IN PLACE; CALL LIGHT WITHIN REACH, BED IN LOW, LOCKED POSITION. WILL ENDORSE NELLY TO ONCOMING RN
[2019-02-04 07:30] VITALS: BP 184/81
[2019-02-04] MEDS: VALSARTAN 80 MG TABLET PO SCH (08:30)
[2019-02-04] MEDS: CLONIDINE HCL 0.1 MG TABLET PO SCH ×2 (08:31→12:39)
[2019-02-04] MEDS: ASPIRIN EC 81 MG TABLET.DR PO SCH (08:31)
[2019-02-04] MEDS ORDERED: AMLODIPINE BESYLATE 5 MG TABLET PO SCH (09:00)
--- NOTE | 2019-02-04 09:27 | NUR ---
MS RN OPENING NOTES Patient received on room air, no sob noted, a/o x4. Patient remains with sitter at all times. R AC #18, L FA #20, RFA #18 with d5 NS@100ml per hour. Bed at the lowest setting, call light within reach, side rails up x2.
--- NOTE | 2019-02-04 15:30 | NUR ---
RN MS DISCHARGE NOTES Patient discharged at this time. No sob noted, vital signs stable. Removed IV lines with minimal bleeding noted. Patient's daughter signed all paper work, has no further questions regarding the subject. Patients belonging with their possession. Patient leaving with her daughter and sitter.
[2019-02-04 16:09] VITALS: BP 125/59
== END 2019-02-04 15:30 | disposition home or self-care (01) | DRG 305 ==
LOC: ER 16:54 → TELE 20:30 → MED 02-01 08:36
PROVIDERS: ADMIT Internal Medicine; ATTEND Internal Medicine
DX: I16.0 Hypertensive urgency (principal); N39.0 Urinary tract infection, site not specified; E86.0 Dehydration; W19.XXXA Unspecified fall, initial encounter; Z87.440 Personal history of urinary (tract) infections; Z74.09 Other reduced mobility; Y92.9 Unspecified place or not applicable; F03.90 Unspecified dementia, unspecified severity, without behavioral disturbance, psychotic disturbance, mood disturbance, and anxiety; Z96.649 Presence of unspecified artificial hip joint
CPT/HCPCS: 36415; 70496-TC; 70498-TC; 71045-TC; 80048-TC; 80061-TC; 80076-TC; 83605-TC; 84484-TC; 85025-TC; 85730-TC; 87040-TC; 87081-TC; 90732; 93307-TC; 97530-TC; G0378; J0696; J3490; J7030; J7042; J7050; J7060; Q2036; Q9967